=== PATIENT | male | born 1970 | race Caucasian/White ===

== ENCOUNTER 2017-01-30 05:16 | Inpatient (IN) | payer OTHER ==
[~2017-01-30] VITALS: Ht 180.3 cm; Wt 103.0 kg
[2017-01-30] MEDS ORDERED: LACTATED RINGERS 1,000 ML IV SCH (06:03)
[2017-01-30] MEDS ORDERED: ATOR20TA9 PO (06:10)
[2017-01-30] MEDS ORDERED: LOSARTAN PO (06:10)
[2017-01-30] MEDS ORDERED: CELE200C PO (06:10)
[2017-01-30] MEDS ORDERED: GABA300C10 PO (06:10)
[2017-01-30] MEDS ORDERED: SPIR25TA3 PO (06:10)
[2017-01-30] MEDS ORDERED: TEST100V2 IM (06:10)
[2017-01-30] MEDS ORDERED: MUPI22OI2 TP (06:10)
[2017-01-30 06:11] VITALS: BP 135/83
[2017-01-30] MEDS ORDERED: LIDOCAINE 1%, 2ML SQ PRN (06:30)
[2017-01-30] MEDS ORDERED: LIDOCAINE/PF 1%-EPI 1:200K, 30ML ONE (07:06)
[2017-01-30] MEDS ORDERED: BUPIVACAINE/PF-EPI 0.5% 1:200K ONE (07:06)
[2017-01-30] MEDS ORDERED: BUPIVACAINE/PF-EPI 0.25% 1:200K ONE (07:07)
[2017-01-30] MEDS ORDERED: BACITRACIN 50,000 UNIT ONE (07:07)
[2017-01-30] MEDS ORDERED: THROMBIN 5,000 UNIT VIAL TP ONE (07:07)
[2017-01-30] MEDS ORDERED: CLINDAMYCIN 150 MG/ML, 6ML ONE (07:13)
[2017-01-30] MEDS ORDERED: HYDROmorphone 1 MG/ML, 1ML ONE ×2 (07:22→10:49)
[2017-01-30] MEDS ORDERED: MIDAZOLAM 1 MG/ML, 2ML ONE (07:22)
[2017-01-30] MEDS ORDERED: KETAMINE 10 MG/ML, 20ML ONE (07:22)
[2017-01-30] MEDS ORDERED: FENTANYL PF 250 MCG/5ML ONE (07:22)
[2017-01-30] MEDS ORDERED: DEXAMETHASONE 4 MG/ML, 5ML ONE (07:59)
[2017-01-30] MEDS ORDERED: ONDANSETRON 2MG/ML, 2ML ONE (07:59)
[2017-01-30] MEDS ORDERED: PROPOFOL 10 MG/ML, 50ML ONE (07:59)
[2017-01-30] MEDS ORDERED: EPHEDRINE 50 MG/ML, 1ML ONE (07:59)
[2017-01-30] MEDS ORDERED: PHENYLEPHRINE 10 MG/ML ONE (07:59)
[2017-01-30] MEDS ORDERED: SUCCINYLCHOLINE 20 MG/ML, 10ML ONE (07:59)
[2017-01-30] MEDS ORDERED: PROPOFOL 10 MG/ML, 20ML ONE (07:59)
[2017-01-30] MEDS ORDERED: ONDANSETRON 2MG/ML, 2ML IVPush PRN (09:00)
[2017-01-30] MEDS ORDERED: LABETALOL 5MG/ML, 20ML IV PRN ×2 (09:00→14:00)
[2017-01-30] MEDS ORDERED: HYDROmorphone 1 MG/ML, 1ML IV PRN (09:00)
[2017-01-30] MEDS ORDERED: FENTANYL PF 100 MCG/2ML IV PRN (09:00)
[2017-01-30] MEDS ORDERED: hydrALAzine 20 MG/ML, 1ML IV PRN (09:00)
[2017-01-30] MEDS ORDERED: ALBUTEROL/IPRATROPIUM 2.5MG/0.5MG, 3 ML NPPB PRN (09:00)
[2017-01-30] MEDS ORDERED: PROMETHAZINE 25 MG/ML, 1ML IV PRN (09:00)
[2017-01-30] MEDS ORDERED: ACETAMINOPHEN 325 MG TABLET PO PRN (09:00)
[2017-01-30] MEDS ORDERED: OXYcodone 5 MG/5 ML ORAL.SOL UDC PO PRN (09:00)
[2017-01-30] MEDS ORDERED: MEPERIDINE/PF 25MG/0.5ML IVPush PRN (09:00)
[2017-01-30] MEDS ORDERED: MIDAZOLAM 1 MG/ML, 2ML IV PRN (09:00)
[2017-01-30] MEDS ORDERED: FENTANYL PF 100 MCG/2ML ONE (10:49)
[2017-01-30 13:09] VITALS: BP 137/93
[2017-01-30] MEDS ORDERED: MAGNESIUM HYDROXIDE 8%, 30ML UDC PO PRN (14:00)
[2017-01-30] MEDS ORDERED: DIAZEPAM 5 MG/ML, 2ML IV PRN (14:00)
[2017-01-30] MEDS ORDERED: DIPHENHYDRAMINE 50 MG CAPSULE PO PRN (14:00)
[2017-01-30] MEDS ORDERED: CLINDAMYCIN PMX 900MG/50ML 50 ML IV ONE (14:00)
[2017-01-30] MEDS ORDERED: DIAZEPAM 5 MG TABLET PO PRN (14:00)
[2017-01-30] MEDS ORDERED: HYDROmorphone 2 MG/ML, 1ML IM PRN (14:00)
[2017-01-30] MEDS ORDERED: DIPHENHYDRAMINE 50 MG/ML, 1ML IM PRN (14:00)
[2017-01-30] MEDS ORDERED: BISACODYL 10 MG SUPP PR PRN (14:00)
[2017-01-30] MEDS ORDERED: DIPHENHYDRAMINE 50 MG/ML, 1ML IVPush PRN (14:00)
[2017-01-30] MEDS ORDERED: PROMETHAZINE 25 MG/ML, 1ML IM PRN (14:00)
[2017-01-30 14:19] VITALS: BP 131/91
[2017-01-30] MEDS ORDERED: VANCOMYCIN 0 MG in SODIUM CHLORIDE 0.9% 250 ML IV SCH (14:30)
[2017-01-30] MEDS: DEXAMETHASONE 4 MG/ML, 1ML IVPush SCH ×2 (14:46→21:11)
[2017-01-30] MEDS ORDERED: PHARMACOKINETIC CONSULTATION MC ONE (15:00)
[2017-01-30] MEDS ORDERED: VANCOMYCIN PER PHARMACY MC PRN (15:00)
[2017-01-30] MEDS ORDERED: PHARMACOKINETIC MONITORING MC PRN (15:00)
[2017-01-30] MEDS: VANCOMYCIN 2,000 MG in SODIUM CHLORIDE 0.9% 500 ML IV SCH (16:48)
[2017-01-30] MEDS: LACTATED RINGERS 1,000 ML IV SCH (16:49)
[2017-01-30] MEDS: GABAPENTIN 300 MG CAPSULE PO SCH ×2 (16:51→21:12)
[2017-01-30 20:00] VITALS: BP 167/107
[2017-01-30] MEDS ORDERED: ATORVASTATIN 20 MG TABLET PO SCH (21:00)
[2017-01-30 21:16] VITALS: BP 145/88
[2017-01-31 00:17] VITALS: BP 127/82
[2017-01-31] MEDS: LACTATED RINGERS 1,000 ML IV SCH ×2 (02:00→10:00)
[2017-01-31] MEDS ORDERED: VANCOMYCIN 0 MG in SODIUM CHLORIDE 0.9% 250 ML IV SCH (02:30)
[2017-01-31] MEDS: VANCOMYCIN 2,000 MG in SODIUM CHLORIDE 0.9% 500 ML IV SCH (02:40)
[2017-01-31] MEDS: DEXAMETHASONE 4 MG/ML, 1ML IVPush SCH (02:40)
[2017-01-31 05:02] VITALS: BP 130/88
[2017-01-31 05:31] LABS: BLOOD UREA NITROGEN 15 mg/dL (7-18)
[2017-01-31 08:26] VITALS: BP 133/78
[2017-01-31] MEDS ORDERED: LOSARTAN 50MG TABLET PO SCH (09:00)
[2017-01-31] MEDS ORDERED: SENNA/DOCUSATE TABLET PO SCH (09:00)
[2017-01-31] MEDS ORDERED: SPIRONOLACTONE 25 MG TABLET PO SCH (09:00)
[2017-01-31] MEDS: GABAPENTIN 300 MG CAPSULE PO SCH (10:18)
== END 2017-01-31 14:04 | disposition home or self-care (01) | DRG 473 ==
LOC: OUT 05:16 → 4NOR 13:07 → OUT 13:44 → 4NOR 13:44 → DCLOUNGE 01-31 13:45
PROVIDERS: ADMIT Orthopaedic Surgery Orthopaedic Surgery of the Spine; ATTEND Orthopaedic Surgery Orthopaedic Surgery of the Spine
PROC: 0RB30ZZ Excision of Cervical Vertebral Disc, Open Approach (ICD-10-PCS; 2017-01-30)
PROC: 4A11X4G Monitoring of Peripheral Nervous Electrical Activity, Intraoperative, External Approach (ICD-10-PCS; 2017-01-30)
PROC: 0RG20A0 Fusion of 2 or more Cervical Vertebral Joints with Interbody Fusion Device, Anterior Approach, Anterior Column, Open Approach (ICD-10-PCS; principal; 2017-01-30 07:30)
DX: M50.123 Cervical disc disorder at C6-C7 level with radiculopathy (principal); M47.22 Other spondylosis with radiculopathy, cervical region; M48.02 Spinal stenosis, cervical region; M25.78 Osteophyte, vertebrae; I10 Essential (primary) hypertension; J32.9 Chronic sinusitis, unspecified; K21.9 Gastro-esophageal reflux disease without esophagitis; K44.9 Diaphragmatic hernia without obstruction or gangrene; E78.00 Pure hypercholesterolemia, unspecified
CPT/HCPCS: 36415; 72040; 82565; 84520; C1713; J1100; J1170; J2250; J2405; J2704; J3010; J3370; J3490; C1762; J0330; J2370; J7040; J7120